=== PATIENT | male | born 1960 | race Caucasian/White ===

== ENCOUNTER 2016-07-13 19:32 | Emergency (ER) | payer MEDICARE, MEDICAID ==
[2016-07-13] MEDS ORDERED: CLINDAMYCIN 150 MG CAP As Ordered ONE (21:10)
--- NOTE | 2016-07-13 21:19 | EDDOCDS ---
Nurse's Notes [facility] Name: Jose Russell Age: 56 yrs Sex: Male : 1960 Arrival Date: 07/13/2016 Time: 19:32 Bed TR7 Private MD: Duncan Latham Diagnosis: Cellulitis of right finger-middle Presentation: 07/13 19:46 Presenting complaint: Patient states: Right middle finger got smashed when carrying 35 rs3 IBS steel weight on Wednesday. Redness /pain getting wrose. Adult Sepsis Screening: The patient does not have new or worsening altered mentation. Patient's respiratory rate is less than 22. Systolic blood pressure is greater than 100. Patient has a qSOFA score of 0- Negative Sepsis Screen. Suicide/Homicide risk assessment- the patient denies having any suicidal and/or homicidal ideations and does not present with any other emotional, behavioral or mental health complaints. Status: Patient is not a food service specialist or dependent. Transition of care: patient was not received from another setting of care. 19:46 Acuity: KOREY Level 4 rs3 19:46 Method Of Arrival: Walkin/Carried/Asstd rs3 Triage Assessment: 19:51 General: Appears in no apparent distress. Pain: Location: dorsal aspect of distal rs3 phalanx of right middle finger and dorsal aspect of middle phalanx of right middle finger. HIV screening NA for this visit Offered previously. Musculoskeletal: Reports Pain is 8 out of 10 on a pain scale. Historical: - Allergies: no known allergies; - Home Meds: 1. loratadine 10 mg Oral cap 10 mg daily 2. Flomax 0.4 mg Oral cp24 1 cap once daily 3. bupropion HCl 150 mg Oral TbER 1 tab 2 times per day 4. Lisinopril Oral 1 tab once daily - PMHx: Hypertension; BPH; - PSHx: none; - Social history: Smoking status: Patient states former smoker of tobacco. No barriers to communication noted, The patient speaks fluent Persian. - Family history: Not pertinent. - : The pt / caregiver states he / she is not on anticoagulants. Home medication list is obtained from the patient. - Exposure Risk Screening:: None identified. Screenin:16 Screening information is obtained from the patient. Fall risk: No risks identified. jmb Assistance ADL's: requires no assistance with activities of daily living. Abuse/DV Screen: The patient / caregiver reports he/she is: not in a situation that causes fear, pain or injury. Nutritional screening: No deficits noted. Advance Directives: Currently, there is no health care proxy. There is no active DNR order. There is no living will. There is no Power of Coagulator. home support is adequate. Assessment: 21:16 General: Patient instructed on discharge instructions. Patient asked if there were any b questions regarding discharge, patient stated no. Patient signed discharge instructions. Patient discharged in stable condition. . Musculoskeletal: Range of motion intact in all extremities. Vital Signs: 19:35 BP 168 / 79; Pulse 77; Resp 20; Temp 96.8(O); Pulse Ox 97% on R/A; Weight 127.01 kg kb5 (M); Height 6 ft. 1 in. (185.42 cm) (R); Pain 8/10; 21:16 BP 150 / 70; Pulse 80; Resp 20; Temp 97.0(O); Pulse Ox 98% on R/A; Pain 0/10; jmb 19:35 Body Mass Index 36.94 (127.01 kg, 185.42 cm) kb5 Vitals: 19:51 Log In Time: July 13, 2016 at 19:32. rs3 ED Course: 19:33 Patient visited by Lb Garduno PCA. kb5 19:33 Patient moved to Waiting kb5 19:34 Duncan Latham MD is Private Physician. kb5 19:48 Triage Initiated rs3 19:56 Patient moved to Pre RCE rs3 20:29 Patient moved to Triage 1 ar3 20:58 Jordan Barney PA-C is PHCP. cc10 20:58 Kyle Pizano DO is Attending Physician. cc10 20:58 PHCP role handed off by Jordan Barney PA-C mo1 20:58 Jaxson Callejas PA is PHCP. mo1 20:58 PHCP role handed off by Jaxson Callejas PA cc10 20:58 Jordan Barney PA-C is PHCP. cc10 20:58 Patient visited by Jordan Barney PA-C. cc10 20:58 Patient visited by Jordan Barney PA-C. cc10 21:08 Duncan Latham MD is Referral Physician. cc10 21:14 Patient moved to [address] 21:16 The patient / caregiver is instructed regarding the plan of care and ED course. b 21:16 No IV's were initiated during this patient's visit. No procedures done that require jmb assistance. Administered Medications: 21:14 Drug: Clindamycin 300 mg [clindamycin 150 mg capsule (2 caps)] Route: PO; jmb Order Results: There are currently no results for this order. Outcome: 21:08 Discharge ordered by Provider. cc10 21:16 Discharge Assessment: Patient awake, alert and oriented x 3. No cognitive and/or jmb functional deficits noted. Patient verbalized understanding of disposition instructions. Patient awake and alert. obeys commands, Oriented to person, place and time. Patient verbalized understanding of disposition instructions. Patient has no functional deficits. patient administered narcotics - no. The following High Risk Discharge criteria are identified: None. Discharged to home ambulatory, with significant other. Condition: stable Condition: improved. Discharge instructions given to patient, Instructed on discharge instructions, follow up and referral plans. Demonstrated understanding of instructions, Pt was receptive of discharge instructions/ teaching. No special radiology studies were completed. Property sent home with patient. 21:18 Patient left the ED. [facility] Signatures: Lb Garduno, REFLESHER REFLESHER kb5 Laura Khalil,RN RN rs3 Tiffany Mcguire, REFLESHER REFLESHER ar3 Jaxson Callejas PA PA mo1 Becker, Joshua,RN RN Jordan Dubon PA-C PA-C cc10 MTDD
--- NOTE | 2016-07-13 21:19 | EDDOCDS ---
Physician Documentation [facility] Name: Jose Russell Age: 56 yrs Sex: Male : 1960 Arrival Date: 07/13/2016 Time: 19:32 Bed TR7 Private MD: Duncan Latham Disposition: 07/13/16 21:08 Discharged to Home/Self Care. Impression: Cellulitis of right finger - middle. - Condition is Stable. - Discharge Instructions: Cellulitis. - Medication Reconciliation form. - Follow up: Duncan Latham MD; When: 2 - 3 days; Reason: Wound/Symptom Recheck, Recheck today's complaints, Worsening of conditions, Continuance of care. - Problem is an ongoing problem. - Symptoms are unchanged. Historical: - Allergies: no known allergies; - Home Meds: 1. loratadine 10 mg Oral cap 10 mg daily 2. Flomax 0.4 mg Oral cp24 1 cap once daily 3. bupropion HCl 150 mg Oral TbER 1 tab 2 times per day 4. Lisinopril Oral 1 tab once daily - PMHx: Hypertension; BPH; - PSHx: none; - Social history: Smoking status: Patient states former smoker of tobacco. No barriers to communication noted, The patient speaks fluent Welsh. - Family history: Not pertinent. - : The pt / caregiver states he / she is not on anticoagulants. Home medication list is obtained from the patient. - Exposure Risk Screening:: None identified. Vital Signs: 07/13 19:35 BP 168 / 79; Pulse 77; Resp 20; Temp 96.8(O); Pulse Ox 97% on R/A; Weight 127.01 kg / kb5 280.01 lbs (M); Height 6 ft. 1 in. (185.42 cm) (R); Pain 8/10; 21:16 BP 150 / 70; Pulse 80; Resp 20; Temp 97.0(O); Pulse Ox 98% on R/A; Pain 0/10; jmb 19:35 Body Mass Index 36.94 (127.01 kg, 185.42 cm) kb5 MDM: 21:08 Clindamycin 300 mg PO once ordered. cc10 21:16 Financial registration complete. gjb Administered Medications: 21:14 Drug: Clindamycin 300 mg [clindamycin 150 mg capsule (2 caps)] Route: PO; florb Signatures: Laura Khalil RN RN rs3 Rinku Bain RN RN jmb Jordan Barney PA-C PA-C cc10 Lisa Maciel MTDD
--- NOTE | 2016-07-15 22:19 | EDDOCDS ---
Nurse's Notes [facility] Name: Jose Russell Age: 56 yrs Sex: Male : 1960 Arrival Date: 07/13/2016 Time: 19:32 Bed TR7 Private MD: Duncan Latham Diagnosis: Cellulitis of right finger-middle Presentation: 07/13 19:46 Presenting complaint: Patient states: Right middle finger got smashed when carrying 35 rs3 IBS steel weight on Wednesday. Redness /pain getting wrose. Adult Sepsis Screening: The patient does not have new or worsening altered mentation. Patient's respiratory rate is less than 22. Systolic blood pressure is greater than 100. Patient has a qSOFA score of 0- Negative Sepsis Screen. Suicide/Homicide risk assessment- the patient denies having any suicidal and/or homicidal ideations and does not present with any other emotional, behavioral or mental health complaints. Status: Patient is not a hvac field service technician or dependent. Transition of care: patient was not received from another setting of care. 19:46 Acuity: KOREY Level 4 rs3 19:46 Method Of Arrival: Walkin/Carried/Asstd rs3 Triage Assessment: 19:51 General: Appears in no apparent distress. Pain: Location: dorsal aspect of distal rs3 phalanx of right middle finger and dorsal aspect of middle phalanx of right middle finger. HIV screening NA for this visit Offered previously. Musculoskeletal: Reports Pain is 8 out of 10 on a pain scale. Historical: - Allergies: no known allergies; - Home Meds: 1. loratadine 10 mg Oral cap 10 mg daily 2. Flomax 0.4 mg Oral cp24 1 cap once daily 3. bupropion HCl 150 mg Oral TbER 1 tab 2 times per day 4. Lisinopril Oral 1 tab once daily - PMHx: Hypertension; BPH; - PSHx: none; - Social history: Smoking status: Patient states former smoker of tobacco. No barriers to communication noted, The patient speaks fluent Greenlandic. - Family history: Not pertinent. - : The pt / caregiver states he / she is not on anticoagulants. Home medication list is obtained from the patient. - Exposure Risk Screening:: None identified. Screenin:16 Screening information is obtained from the patient. Fall risk: No risks identified. jmb Assistance ADL's: requires no assistance with activities of daily living. Abuse/DV Screen: The patient / caregiver reports he/she is: not in a situation that causes fear, pain or injury. Nutritional screening: No deficits noted. Advance Directives: Currently, there is no health care proxy. There is no active DNR order. There is no living will. There is no Power of Landscape Gardener. home support is adequate. Assessment: 21:16 General: Patient instructed on discharge instructions. Patient asked if there were any b questions regarding discharge, patient stated no. Patient signed discharge instructions. Patient discharged in stable condition. . Musculoskeletal: Range of motion intact in all extremities. Vital Signs: 19:35 BP 168 / 79; Pulse 77; Resp 20; Temp 96.8(O); Pulse Ox 97% on R/A; Weight 127.01 kg kb5 (M); Height 6 ft. 1 in. (185.42 cm) (R); Pain 8/10; 21:16 BP 150 / 70; Pulse 80; Resp 20; Temp 97.0(O); Pulse Ox 98% on R/A; Pain 0/10; jmb 19:35 Body Mass Index 36.94 (127.01 kg, 185.42 cm) kb5 Vitals: 19:51 Log In Time: July 13, 2016 at 19:32. rs3 ED Course: 19:33 Patient visited by Lb Garduno PCA. kb5 19:33 Patient moved to Waiting kb5 19:34 Duncan Latham MD is Private Physician. kb5 19:48 Triage Initiated rs3 19:56 Patient moved to Pre RCE rs3 20:29 Patient moved to Triage 1 ar3 20:58 Jordan Barney PA-C is PHCP. cc10 20:58 Kyle Pizano DO is Attending Physician. cc10 20:58 PHCP role handed off by Jordan Barney PA-C mo1 20:58 Jaxson Callejas PA is PHCP. mo1 20:58 PHCP role handed off by Jaxson Callejas PA cc10 20:58 Jordan Barney PA-C is PHCP. cc10 20:58 Patient visited by Jordan Barney PA-C. cc10 20:58 Patient visited by Jordan Barney PA-C. cc10 21:08 Duncan Latham MD is Referral Physician. cc10 21:14 Patient moved to TR7 b 21:16 The patient / caregiver is instructed regarding the plan of care and ED course. jmb 21:16 No IV's were initiated during this patient's visit. No procedures done that require jmb assistance. 21:21 Patient name changed from Jose\S\\S\Favry\S\ to Jose\S\ \S\Favry. EDMS 21:23 [facility] Payment Agreement was scanned into [employer] and attached to record. gjb 07/14 10:03 T-Sheet-- Draft Copy was scanned into [employer] and attached to record. gb Administered Medications: 07/13 21:14 Drug: Clindamycin 300 mg [clindamycin 150 mg capsule (2 caps)] Route: PO; jmb Order Results: There are currently no results for this order. Outcome: 21:08 Discharge ordered by Provider. cc10 21:16 Discharge Assessment: Patient awake, alert and oriented x 3. No cognitive and/or jmb functional deficits noted. Patient verbalized understanding of disposition instructions. Patient awake and alert. obeys commands, Oriented to person, place and time. Patient verbalized understanding of disposition instructions. Patient has no functional deficits. patient administered narcotics - no. The following High Risk Discharge criteria are identified: None. Discharged to home ambulatory, with significant other. Condition: stable Condition: improved. Discharge instructions given to patient, Instructed on discharge instructions, follow up and referral plans. Demonstrated understanding of instructions, Pt was receptive of discharge instructions/ teaching. No special radiology studies were completed. Property sent home with patient. 21:18 Patient left the ED. jmb Signatures: Dispatcher [employer] EDAL Karmen Johnson, Reg Reg gb Lb Garduno, HYDROGEN PLANT OPERATIONS MANAGER HYDROGEN PLANT OPERATIONS MANAGER kb5 Laura Khalil,CHENCHO RN rs3 Tiffany Mcguire, HYDROGEN PLANT OPERATIONS MANAGER HYDROGEN PLANT OPERATIONS MANAGER ar3 Jaxson Callejas PA PA mo1 Becker, Joshua, RN RN jmb Coniski, Colin, PA-C PA-C cc10 Lisa Maciel [facility] Chart Complete MTDD
--- NOTE | 2016-07-15 22:19 | EDDOCDS ---
Physician Documentation [facility] Name: Jose Russell Age: 56 yrs Sex: Male : 1960 Arrival Date: 07/13/2016 Time: 19:32 Bed TR7 Private MD: Duncan Latham Disposition: 07/13/16 21:08 Discharged to Home/Self Care. Impression: Cellulitis of right finger - middle. - Condition is Stable. - Discharge Instructions: Cellulitis. - Medication Reconciliation form. - Follow up: Duncan Latham MD; When: 2 - 3 days; Reason: Wound/Symptom Recheck, Recheck today's complaints, Worsening of conditions, Continuance of care. - Problem is an ongoing problem. - Symptoms are unchanged. Historical: - Allergies: no known allergies; - Home Meds: 1. loratadine 10 mg Oral cap 10 mg daily 2. Flomax 0.4 mg Oral cp24 1 cap once daily 3. bupropion HCl 150 mg Oral TbER 1 tab 2 times per day 4. Lisinopril Oral 1 tab once daily - PMHx: Hypertension; BPH; - PSHx: none; - Social history: Smoking status: Patient states former smoker of tobacco. No barriers to communication noted, The patient speaks fluent Albanian. - Family history: Not pertinent. - : The pt / caregiver states he / she is not on anticoagulants. Home medication list is obtained from the patient. - Exposure Risk Screening:: None identified. Vital Signs: 07/13 19:35 BP 168 / 79; Pulse 77; Resp 20; Temp 96.8(O); Pulse Ox 97% on R/A; Weight 127.01 kg / kb5 280.01 lbs (M); Height 6 ft. 1 in. (185.42 cm) (R); Pain 8/10; 21:16 BP 150 / 70; Pulse 80; Resp 20; Temp 97.0(O); Pulse Ox 98% on R/A; Pain 0/10; jmb 19:35 Body Mass Index 36.94 (127.01 kg, 185.42 cm) kb5 MDM: 21:08 Clindamycin 300 mg PO once ordered. cc10 21:16 Financial registration complete. jerilyn 21:23 [facility] Payment Agreement was scanned into [employer] and attached to record. jerilyn 07/14 10:03 T-Sheet-- Draft Copy was scanned into [employer] and attached to record. gb Administered Medications: 07/13 21:14 Drug: Clindamycin 300 mg [clindamycin 150 mg capsule (2 caps)] Route: PO; jesi Signatures: Karmen Johnson, Reg Reg gb Laura Khalil RN RN rs3 Rinku Bain RN RN florb Jordan Barney, PA-C PA-C cc10 Lisa Maciel The chart was reviewed and I authenticate all verbal orders and agree with the evaluation and treatment provided.Attachments: 21:23 [facility] Payment Agreement [facility] 07/14 10:03 T-Sheet-- Draft Copy gb Chart Complete MTDD
--- NOTE | 2016-07-15 22:19 | EDDOCDS ---
Physician Documentation [facility] Name: Jose Russell Age: 56 yrs Sex: Male : 1960 Arrival Date: 07/13/2016 Time: 19:32 Bed TR7 Private MD: Duncan Latham Disposition: 07/13/16 21:08 Discharged to Home/Self Care. Impression: Cellulitis of right finger - middle. - Condition is Stable. - Discharge Instructions: Cellulitis. - Medication Reconciliation form. - Follow up: Duncan Latham MD; When: 2 - 3 days; Reason: Wound/Symptom Recheck, Recheck today's complaints, Worsening of conditions, Continuance of care. - Problem is an ongoing problem. - Symptoms are unchanged. Historical: - Allergies: no known allergies; - Home Meds: 1. loratadine 10 mg Oral cap 10 mg daily 2. Flomax 0.4 mg Oral cp24 1 cap once daily 3. bupropion HCl 150 mg Oral TbER 1 tab 2 times per day 4. Lisinopril Oral 1 tab once daily - PMHx: Hypertension; BPH; - PSHx: none; - Social history: Smoking status: Patient states former smoker of tobacco. No barriers to communication noted, The patient speaks fluent Georgian. - Family history: Not pertinent. - : The pt / caregiver states he / she is not on anticoagulants. Home medication list is obtained from the patient. - Exposure Risk Screening:: None identified. Vital Signs: 07/13 19:35 BP 168 / 79; Pulse 77; Resp 20; Temp 96.8(O); Pulse Ox 97% on R/A; Weight 127.01 kg / kb5 280.01 lbs (M); Height 6 ft. 1 in. (185.42 cm) (R); Pain 8/10; 21:16 BP 150 / 70; Pulse 80; Resp 20; Temp 97.0(O); Pulse Ox 98% on R/A; Pain 0/10; jmb 19:35 Body Mass Index 36.94 (127.01 kg, 185.42 cm) kb5 MDM: 21:08 Clindamycin 300 mg PO once ordered. cc10 21:16 Financial registration complete. jerilyn 21:23 [facility] Payment Agreement was scanned into [employer] and attached to record. jerilyn 07/14 10:03 T-Sheet-- Draft Copy was scanned into [employer] and attached to record. gb Administered Medications: 07/13 21:14 Drug: Clindamycin 300 mg [clindamycin 150 mg capsule (2 caps)] Route: PO; jesi Signatures: Karmen Johnson, Reg Reg gb Laura Khalil RN RN rs3 Rinku Bain RN RN florb Jordan Barney, PA-C PA-C cc10 Lisa Maciel The chart was reviewed and I authenticate all verbal orders and agree with the evaluation and treatment provided.Attachments: 21:23 [facility] Payment Agreement [facility] 07/14 10:03 T-Sheet-- Draft Copy gb Chart Complete MTDD
== END 2016-07-13 21:18 | disposition home or self-care (01) ==
LOC: M ED 19:32
DX: L03.113 Cellulitis of right upper limb (principal); I10 Essential (primary) hypertension; N40.0 Benign prostatic hyperplasia without lower urinary tract symptoms; Z79.899 Other long term (current) drug therapy; Z87.891 Personal history of nicotine dependence

== ENCOUNTER 2016-07-18 21:34 | Emergency (ER) | payer MEDICARE, MEDICAID ==
[2016-07-18] MEDS ORDERED: CLINDAMYCIN 150 MG CAP As Ordered ONE (22:21)
[2016-07-18] MEDS ORDERED: LIDOCAINE 2% MDV 20 ML VIAL As Ordered ONE (22:22)
[2016-07-18] MEDS ORDERED: NORCO, ANEXSIA 5/325MG TABLET (HYDROcodone/ACETAMINOPHEN) As Ordered ONE (22:45)
--- NOTE | 2016-07-18 23:03 | EDDOCDS ---
Nurse's Notes [facility] Name: Jose Russell Age: 56 yrs Sex: Male : 1960 Arrival Date: 07/18/2016 Time: 21:34 Bed Triage 2 Private MD: Duncan Latham Diagnosis: Cutaneous abscess of right hand-paronychia right third finger Presentation: 07/18 21:44 Presenting complaint: Patient states: Was seen here Wednesday--stuck finger with wire. Has mcp been on antibiotics and finger is getting worse. Adult Sepsis Screening: The patient does not have new or worsening altered mentation. Patient's respiratory rate is less than 22. Systolic blood pressure is greater than 100. Patient has a qSOFA score of 0- Negative Sepsis Screen. Suicide/Homicide risk assessment- the patient denies having any suicidal and/or homicidal ideations and does not present with any other emotional, behavioral or mental health complaints. Status: Patient is not a tax services specialist or dependent. Transition of care: patient was not received from another setting of care. 21:44 Acuity: KOREY Level 4 [facility] 21:44 Method Of Arrival: Walkin/Carried/Asstd [facility] Triage Assessment: 21:46 General: Appears uncomfortable, Behavior is cooperative. Pain: Location: dorsal aspect mcp of distal phalanx of right middle finger. HIV screening NA for this visit Offered previously. Neurological: No deficits noted. Respiratory: No deficits noted. Derm: Skin is pink, warm & dry. Abscess located on dorsal aspect of distal phalanx of right middle finger. Musculoskeletal: Circulation, motion, and sensation intact Swelling present in dorsal aspect of distal phalanx of right middle finger. Historical: - Allergies: no known allergies; - Home Meds: 1. bupropion HCl 150 mg Oral TbER 1 tab 2 times per day 2. Flomax 0.4 mg Oral cp24 1 cap once daily 3. Lisinopril Oral 1 tab once daily 4. loratadine 10 mg Oral cap 10 mg daily 5. doxycycline hyclate 100 mg Oral cap 1 cap every 12 hours - PMHx: BPH; Hypertension; - PSHx: none; - Social history: Smoking status: Patient states was never smoker of tobacco. No barriers to communication noted, The patient speaks fluent Beninese. - Family history: Not pertinent. - : The pt / caregiver states he / she is not on anticoagulants. Home medication list is obtained from the patient, family members. - Exposure Risk Screening:: None identified. Screenin:56 Screening information is obtained from the patient. Fall risk: No risks identified. kmg1 Assistance ADL's: requires no assistance with activities of daily living. Abuse/DV Screen: The patient / caregiver reports he/she is: not in a situation that causes fear, pain or injury. Nutritional screening: No deficits noted. Advance Directives: There is no active DNR order. home support is adequate. Assessment: 22:25 General: Appears in no apparent distress, comfortable, Behavior is appropriate for age. kmg1 Pain: Location: dorsal aspect of distal phalanx of right middle finger, palmar aspect of distal phalanx of right middle finger and right middle fingernail Pain currently is 5 out of 10 on a pain scale. Quality of pain is described as pressure, throbbing. Derm: Abscess located on dorsal aspect of distal phalanx of right middle finger, palmar aspect of distal phalanx of right middle finger and right middle fingernail is Abscess is Right middle fingertip swollen and puss filled. Musculoskeletal: Circulation, motion, and sensation intact Capillary refill < 3 seconds. Vital Signs: 21:36 BP 149 / 72; Pulse 69; Resp 16; Temp 96.1(T); Pulse Ox 98% on R/A; Weight 125.19 kg lr2 (R); Height 6 ft. 1 in. (185.42 cm) (R); Pain 5/10; 21:36 Body Mass Index 36.41 (125.19 kg, 185.42 cm) lr2 Vitals: 21:36 Log In Time: July 18, 2016 at 21:34. lr2 ED Course: 21:36 Patient visited by Tia Brown. lr2 21:36 Patient moved to Waiting lr2 21:38 Duncan Latham MD is Private Physician. lr2 21:38 Patient moved to Pre RCE lr2 21:45 Triage Initiated mcp 21:47 Patient visited by Dianna Cruz RN. [facility] 21:47 Patient moved to Triage 2 mcp 22:17 [facility] Callejas [facility] mo1 22:17 Gen Shaikh DO is Attending Physician. mo1 22:19 Patient visited by Jaxson Callejas PA. mo1 22:27 No IV's were initiated during this patient's visit. Assist provider with I & D: of an ms18 abscess on R middle finger. 22:40 Duncan Latham MD is Referral Physician. mo1 22:44 [facility] Payment Agreement was scanned into [employer] and attached to record. ks16 22:47 Patient name changed from Jose\S\\S\Favry\S\ to Jose\S\ \S\Favry. EDMS 22:56 The patient / caregiver is instructed regarding the plan of care and ED course. kmg1 22:56 No IV's were initiated during this patient's visit. kmg1 Administered Medications: 22:23 Drug: Clindamycin 300 mg [clindamycin 150 mg capsule (2 caps)] Route: PO; mo1 22:26 Drug: Lidocaine 10 ml [lidocaine 20 mg/mL (2 %) injection solution (10 mL)] {Note: by mo1 Trupti SOLOMON.} Route: Infiltration; Order Results: There are currently no results for this order. Outcome: 22:40 Discharge ordered by Provider. mo1 22:56 Discharge Assessment: Patient awake, alert and oriented x 3. No cognitive and/or kmg1 functional deficits noted. Patient verbalized understanding of disposition instructions. Patient awake and alert. patient administered narcotics - yes. Pt provided with safe discharge. The following High Risk Discharge criteria are identified: None. Discharged to home ambulatory, with significant other. Condition: stable. Discharge instructions given to patient, Instructed on discharge instructions, follow up and referral plans. medication usage, wound care, Demonstrated understanding of instructions, medications, Pt was receptive of discharge instructions/ teaching. Prescriptions given X 2. No special radiology studies were completed. Property sent home with patient. 23:02 Patient left the ED. [facility] Signatures: [facility] ED[facility] Aretha Nuñez RN RN kmg1 Dianna Cruz RN RN mcp O'Hagan, Michael, PA PA mo1 Mishel Benavides RN RN ms18 Naye Huang, Reg Reg ks16 Tia Brown lr2 MTDD
--- NOTE | 2016-07-18 23:03 | EDDOCDS ---
Physician Documentation [facility] Name: Jose Russell Age: 56 yrs Sex: Male : 1960 Arrival Date: 07/18/2016 Time: 21:34 Bed Triage 2 Private MD: Duncan Latham Disposition: 07/18/16 22:40 Discharged to Home/Self Care. Impression: Cutaneous abscess of right hand - paronychia right third finger. - Condition is Stable. - Discharge Instructions: Abscess, Paronychia. - Prescriptions for Clindamycin HCl 300 mg Oral Capsule - take 1 capsule by ORAL route every 6 hours; 40 capsule. Silvis 5- 325 mg Oral Tablet - take 1 tablet by ORAL route every 6 hours As needed MDD: 4 tabs; 12 tablet. - Medication Reconciliation, Local Pharmacy Hours form. - Follow up: Duncan Latham MD; When: Call to arrange an appointment; Reason: Recheck today's complaints, Continuance of care. - Problem is new. - Symptoms are unchanged. Historical: - Allergies: no known allergies; - Home Meds: 1. bupropion HCl 150 mg Oral TbER 1 tab 2 times per day 2. Flomax 0.4 mg Oral cp24 1 cap once daily 3. Lisinopril Oral 1 tab once daily 4. loratadine 10 mg Oral cap 10 mg daily 5. doxycycline hyclate 100 mg Oral cap 1 cap every 12 hours - PMHx: BPH; Hypertension; - PSHx: none; - Social history: Smoking status: Patient states was never smoker of tobacco. No barriers to communication noted, The patient speaks fluent Urdu. - Family history: Not pertinent. - : The pt / caregiver states he / she is not on anticoagulants. Home medication list is obtained from the patient, family members. - Exposure Risk Screening:: None identified. Vital Signs: 07/18 21:36 BP 149 / 72; Pulse 69; Resp 16; Temp 96.1(T); Pulse Ox 98% on R/A; Weight 125.19 kg / lr2 276 lbs (R); Height 6 ft. 1 in. (185.42 cm) (R); Pain 5/10; 21:36 Body Mass Index 36.41 (125.19 kg, 185.42 cm) lr2 Procedures: 22:33 I & D: Incision and drainage was performed for an abscess of the dorsal aspect of mo1 distal phalanx of right middle finger Prepped with hibiclens. Anesthetized with 2 ml's 2% Lidocaine. Incised with #11 blade. Drained large amount purulent fluid. bloody fluid. Packed with the patient tolerated the procedure well. MDM: 22:21 Clindamycin 300 mg PO once ordered. mo1 22:21 Dressing ordered. mo1 22:21 Lidocaine 20 mg/mL (2 %) 10 ml Infiltration once; to bedside ordered. mo1 22:38 Financial registration complete. ks16 22:41 HYDROcodone-acetaminophen 5 mg-325 mg 1 tabs PO once ordered. mo1 22:44 [facility] Payment Agreement was scanned into [employer] and attached to record. ks16 Administered Medications: 22:23 Drug: Clindamycin 300 mg [clindamycin 150 mg capsule (2 caps)] Route: PO; mo1 22:26 Drug: Lidocaine 10 ml [lidocaine 20 mg/mL (2 %) injection solution (10 mL)] {Note: by mo1 Trupti SOLOMON.} Route: Infiltration; Signatures: Aretha Nuñez RN RN km Dianna Cruz RN RN mcp O'Hagan, Michael, PA PA mo1 Naye Huang, Reg Reg ks16 The chart was reviewed and I authenticate all verbal orders and agree with the evaluation and treatment provided.Attachments: 22:44 [facility] Payment Agreement ks16 MTDD
--- NOTE | 2016-07-21 00:03 | EDDOCDS ---
Nurse's Notes [facility] Name: Jose Russell Age: 56 yrs Sex: Male : 1960 Arrival Date: 07/18/2016 Time: 21:34 Bed Triage 2 Private MD: Duncan Latham Diagnosis: Cutaneous abscess of right hand-paronychia right third finger Presentation: 07/18 21:44 Presenting complaint: Patient states: Was seen here Wednesday--stuck finger with wire. Has mcp been on antibiotics and finger is getting worse. Adult Sepsis Screening: The patient does not have new or worsening altered mentation. Patient's respiratory rate is less than 22. Systolic blood pressure is greater than 100. Patient has a qSOFA score of 0- Negative Sepsis Screen. Suicide/Homicide risk assessment- the patient denies having any suicidal and/or homicidal ideations and does not present with any other emotional, behavioral or mental health complaints. Status: Patient is not a financial services director or dependent. Transition of care: patient was not received from another setting of care. 21:44 Acuity: KOREY Level 4 [facility] 21:44 Method Of Arrival: Walkin/Carried/Asstd [facility] Triage Assessment: 21:46 General: Appears uncomfortable, Behavior is cooperative. Pain: Location: dorsal aspect mcp of distal phalanx of right middle finger. HIV screening NA for this visit Offered previously. Neurological: No deficits noted. Respiratory: No deficits noted. Derm: Skin is pink, warm & dry. Abscess located on dorsal aspect of distal phalanx of right middle finger. Musculoskeletal: Circulation, motion, and sensation intact Swelling present in dorsal aspect of distal phalanx of right middle finger. Historical: - Allergies: no known allergies; - Home Meds: 1. bupropion HCl 150 mg Oral TbER 1 tab 2 times per day 2. Flomax 0.4 mg Oral cp24 1 cap once daily 3. Lisinopril Oral 1 tab once daily 4. loratadine 10 mg Oral cap 10 mg daily 5. doxycycline hyclate 100 mg Oral cap 1 cap every 12 hours - PMHx: BPH; Hypertension; - PSHx: none; - Social history: Smoking status: Patient states was never smoker of tobacco. No barriers to communication noted, The patient speaks fluent Beninese. - Family history: Not pertinent. - : The pt / caregiver states he / she is not on anticoagulants. Home medication list is obtained from the patient, family members. - Exposure Risk Screening:: None identified. Screenin:56 Screening information is obtained from the patient. Fall risk: No risks identified. kmg1 Assistance ADL's: requires no assistance with activities of daily living. Abuse/DV Screen: The patient / caregiver reports he/she is: not in a situation that causes fear, pain or injury. Nutritional screening: No deficits noted. Advance Directives: There is no active DNR order. home support is adequate. Assessment: 22:25 General: Appears in no apparent distress, comfortable, Behavior is appropriate for age. kmg1 Pain: Location: dorsal aspect of distal phalanx of right middle finger, palmar aspect of distal phalanx of right middle finger and right middle fingernail Pain currently is 5 out of 10 on a pain scale. Quality of pain is described as pressure, throbbing. Derm: Abscess located on dorsal aspect of distal phalanx of right middle finger, palmar aspect of distal phalanx of right middle finger and right middle fingernail is Abscess is Right middle fingertip swollen and puss filled. Musculoskeletal: Circulation, motion, and sensation intact Capillary refill < 3 seconds. Vital Signs: 21:36 BP 149 / 72; Pulse 69; Resp 16; Temp 96.1(T); Pulse Ox 98% on R/A; Weight 125.19 kg lr2 (R); Height 6 ft. 1 in. (185.42 cm) (R); Pain 5/10; 21:36 Body Mass Index 36.41 (125.19 kg, 185.42 cm) lr2 Vitals: 21:36 Log In Time: July 18, 2016 at 21:34. lr2 ED Course: 21:36 Patient visited by Tia Brown. lr2 21:36 Patient moved to Waiting lr2 21:38 Duncan Latham MD is Private Physician. lr2 21:38 Patient moved to Pre RCE lr2 21:45 Triage Initiated mcp 21:47 Patient visited by Dianna Cruz RN. [facility] 21:47 Patient moved to Triage 2 mcp 22:17 Jax[facility]lejas [facility]. mo1 22:17 Gen Shaikh DO is Attending Physician. mo1 22:19 Patient visited by Jaxson Callejas PA. mo1 22:27 No IV's were initiated during this patient's visit. Assist provider with I & D: of an ms18 abscess on R middle finger. 22:40 Duncan Latham MD is Referral Physician. mo1 22:44 [facility] Payment Agreement was scanned into [employer] and attached to record. ks16 22:47 Patient name changed from Jose\S\\S\Favry\S\ to Jose\S\ \S\Favry. EDMS 22:56 The patient / caregiver is instructed regarding the plan of care and ED course. kmg1 22:56 No IV's were initiated during this patient's visit. [facility] 07/19 08:25 T-Sheet-- Draft Copy was scanned into [employer] and attached to record. [facility] Administered Medications: 07/18 22:23 Drug: Clindamycin 300 mg [clindamycin 150 mg capsule (2 caps)] Route: PO; mo1 22:26 Drug: Lidocaine 10 ml [lidocaine 20 mg/mL (2 %) injection solution (10 mL)] {Note: by mo1 Trupti SOLOMON.} Route: Infiltration; Order Results: There are currently no results for this order. Outcome: 22:40 Discharge ordered by Provider. mo1 22:56 Discharge Assessment: Patient awake, alert and oriented x 3. No cognitive and/or [facility] functional deficits noted. Patient verbalized understanding of disposition instructions. Patient awake and alert. patient administered narcotics - yes. Pt provided with safe discharge. The following High Risk Discharge criteria are identified: None. Discharged to home ambulatory, with significant other. Condition: stable. Discharge instructions given to patient, Instructed on discharge instructions, follow up and referral plans. medication usage, wound care, Demonstrated understanding of instructions, medications, Pt was receptive of discharge instructions/ teaching. Prescriptions given X 2. No special radiology studies were completed. Property sent home with patient. 23:02 Patient left the ED. [facility] Signatures: [facility] Aretha Nuñez RN RN g1 Dianna Cruz RN RN mcp O'Hagan, Michael, PA PA mo1 Mishel Benavides RN RN ms18 Naye Huang, Reg Reg ks16 Rosangela, Tia Lane Chart Complete MTDD
--- NOTE | 2016-07-21 00:03 | EDDOCDS ---
Physician Documentation [facility] Name: Jose Russell Age: 56 yrs Sex: Male : 1960 Arrival Date: 07/18/2016 Time: 21:34 Bed Triage 2 Private MD: Duncan Latham Disposition: 07/18/16 22:40 Discharged to Home/Self Care. Impression: Cutaneous abscess of right hand - paronychia right third finger. - Condition is Stable. - Discharge Instructions: Abscess, Paronychia. - Prescriptions for Clindamycin HCl 300 mg Oral Capsule - take 1 capsule by ORAL route every 6 hours; 40 capsule. Dixon 5- 325 mg Oral Tablet - take 1 tablet by ORAL route every 6 hours As needed MDD: 4 tabs; 12 tablet. - Medication Reconciliation, Local Pharmacy Hours form. - Follow up: Duncan Latham MD; When: Call to arrange an appointment; Reason: Recheck today's complaints, Continuance of care. - Problem is new. - Symptoms are unchanged. Historical: - Allergies: no known allergies; - Home Meds: 1. bupropion HCl 150 mg Oral TbER 1 tab 2 times per day 2. Flomax 0.4 mg Oral cp24 1 cap once daily 3. Lisinopril Oral 1 tab once daily 4. loratadine 10 mg Oral cap 10 mg daily 5. doxycycline hyclate 100 mg Oral cap 1 cap every 12 hours - PMHx: BPH; Hypertension; - PSHx: none; - Social history: Smoking status: Patient states was never smoker of tobacco. No barriers to communication noted, The patient speaks fluent Kazakh. - Family history: Not pertinent. - : The pt / caregiver states he / she is not on anticoagulants. Home medication list is obtained from the patient, family members. - Exposure Risk Screening:: None identified. Vital Signs: 07/18 21:36 BP 149 / 72; Pulse 69; Resp 16; Temp 96.1(T); Pulse Ox 98% on R/A; Weight 125.19 kg / lr2 276 lbs (R); Height 6 ft. 1 in. (185.42 cm) (R); Pain 5/10; 21:36 Body Mass Index 36.41 (125.19 kg, 185.42 cm) lr2 Procedures: 22:33 I & D: Incision and drainage was performed for an abscess of the dorsal aspect of mo1 distal phalanx of right middle finger Prepped with hibiclens. Anesthetized with 2 ml's 2% Lidocaine. Incised with #11 blade. Drained large amount purulent fluid. bloody fluid. Packed with the patient tolerated the procedure well. MDM: 22:21 Clindamycin 300 mg PO once ordered. mo1 22:21 Dressing ordered. mo1 22:21 Lidocaine 20 mg/mL (2 %) 10 ml Infiltration once; to bedside ordered. mo1 22:38 Financial registration complete. ks16 22:41 HYDROcodone-acetaminophen 5 mg-325 mg 1 tabs PO once ordered. mo1 22:44 [facility] Payment Agreement was scanned into [employer] and attached to record. 07/19 08:25 T-Sheet-- Draft Copy was scanned into [employer] and attached to record. se Administered Medications: 07/18 22:23 Drug: Clindamycin 300 mg [clindamycin 150 mg capsule (2 caps)] Route: PO; mo1 22:26 Drug: Lidocaine 10 ml [lidocaine 20 mg/mL (2 %) injection solution (10 mL)] {Note: by mo1 Trupti SOLOMON.} Route: Infiltration; Signatures: Aretha Nuñez RN RN km Dianna Cruz RN RN [facility] Jaxson Callejas PA PA mo1 Naye Huang, Reg Reg ks16 Alicia Adames oliver The chart was reviewed and I authenticate all verbal orders and agree with the evaluation and treatment provided.Attachments: :44 [facility] Payment Agreement 07/19 08:25 T-Sheet-- Draft Copy [facility] Chart Complete MTDD
--- NOTE | 2016-07-21 00:03 | EDDOCDS ---
Physician Documentation [facility] Name: Jose Russell Age: 56 yrs Sex: Male : 1960 Arrival Date: 07/18/2016 Time: 21:34 Bed Triage 2 Private MD: Duncan Latham Disposition: 07/18/16 22:40 Discharged to Home/Self Care. Impression: Cutaneous abscess of right hand - paronychia right third finger. - Condition is Stable. - Discharge Instructions: Abscess, Paronychia. - Prescriptions for Clindamycin HCl 300 mg Oral Capsule - take 1 capsule by ORAL route every 6 hours; 40 capsule. Sabin 5- 325 mg Oral Tablet - take 1 tablet by ORAL route every 6 hours As needed MDD: 4 tabs; 12 tablet. - Medication Reconciliation, Local Pharmacy Hours form. - Follow up: Duncan Latham MD; When: Call to arrange an appointment; Reason: Recheck today's complaints, Continuance of care. - Problem is new. - Symptoms are unchanged. Historical: - Allergies: no known allergies; - Home Meds: 1. bupropion HCl 150 mg Oral TbER 1 tab 2 times per day 2. Flomax 0.4 mg Oral cp24 1 cap once daily 3. Lisinopril Oral 1 tab once daily 4. loratadine 10 mg Oral cap 10 mg daily 5. doxycycline hyclate 100 mg Oral cap 1 cap every 12 hours - PMHx: BPH; Hypertension; - PSHx: none; - Social history: Smoking status: Patient states was never smoker of tobacco. No barriers to communication noted, The patient speaks fluent Turkmen. - Family history: Not pertinent. - : The pt / caregiver states he / she is not on anticoagulants. Home medication list is obtained from the patient, family members. - Exposure Risk Screening:: None identified. Vital Signs: 07/18 21:36 BP 149 / 72; Pulse 69; Resp 16; Temp 96.1(T); Pulse Ox 98% on R/A; Weight 125.19 kg / lr2 276 lbs (R); Height 6 ft. 1 in. (185.42 cm) (R); Pain 5/10; 21:36 Body Mass Index 36.41 (125.19 kg, 185.42 cm) lr2 Procedures: 22:33 I & D: Incision and drainage was performed for an abscess of the dorsal aspect of mo1 distal phalanx of right middle finger Prepped with hibiclens. Anesthetized with 2 ml's 2% Lidocaine. Incised with #11 blade. Drained large amount purulent fluid. bloody fluid. Packed with the patient tolerated the procedure well. MDM: 22:21 Clindamycin 300 mg PO once ordered. mo1 22:21 Dressing ordered. mo1 22:21 Lidocaine 20 mg/mL (2 %) 10 ml Infiltration once; to bedside ordered. mo1 22:38 Financial registration complete. ks16 22:41 HYDROcodone-acetaminophen 5 mg-325 mg 1 tabs PO once ordered. mo1 22:44 [facility] Payment Agreement was scanned into [employer] and attached to record. 07/19 08:25 T-Sheet-- Draft Copy was scanned into [employer] and attached to record. se Administered Medications: 07/18 22:23 Drug: Clindamycin 300 mg [clindamycin 150 mg capsule (2 caps)] Route: PO; mo1 22:26 Drug: Lidocaine 10 ml [lidocaine 20 mg/mL (2 %) injection solution (10 mL)] {Note: by mo1 Trupti SOLOMON.} Route: Infiltration; Signatures: Aretha Nuñez RN RN km Dianna Cruz RN RN [facility] Jaxson Callejas PA PA mo1 Naye Huang, Reg Reg ks16 Alicia Adames oliver The chart was reviewed and I authenticate all verbal orders and agree with the evaluation and treatment provided.Attachments: :44 [facility] Payment Agreement 07/19 08:25 T-Sheet-- Draft Copy [facility] Chart Complete MTDD
== END 2016-07-18 23:02 | disposition home or self-care (01) ==
LOC: M ED 21:34
DX: L02.511 Cutaneous abscess of right hand (principal); L03.011 Cellulitis of right finger; I10 Essential (primary) hypertension; N40.0 Benign prostatic hyperplasia without lower urinary tract symptoms; Z79.899 Other long term (current) drug therapy

== ENCOUNTER 2016-07-26 11:05 | Emergency (ER) | payer MEDICARE, MEDICAID ==
[~2016-07-26] VITALS: Ht 185.4 cm; Wt 122.5 kg
[2016-07-26 11:06] VITALS: BP 159/100
[2016-07-26] MEDS ORDERED: FLOM5CAP PO (11:22)
[2016-07-26] MEDS ORDERED: AMOX875T2 PO (11:22)
[2016-07-26] MEDS ORDERED: FLON1SPR (11:22)
[2016-07-26] MEDS ORDERED: MULTCAP12 PO (11:22)
[2016-07-26] MEDS ORDERED: ASPI81TA85 PO (11:22)
[2016-07-26] MEDS ORDERED: CLAR10CA3 PO (11:22)
[2016-07-26] MEDS ORDERED: BUPR1TAB17 PO (11:22)
[2016-07-26] MEDS ORDERED: LISI-542 PO (11:22)
[2016-07-26] MEDS ORDERED: CLINDAMYCIN 900 MG in APPROPRIATE DILUENT 1 EA IV ONE (12:15)
--- NOTE | 2016-07-26 12:24 | REP ---
RIGHT THIRD DIGIT: Four views of the right third digit are performed. There is no evidence of acute fracture, dislocation or osseous destruction. No periosteal reaction is seen. IMPRESSION: Negative exam. Signed by Phi Flores MD 07/26/2016 01:57 P
[2016-07-26 12:40] LABS: BASO # 0.1 K/mm3 (0.0-0.2); BASO % 0.7 % (0.0-1.0); EOS # 0.1 K/mm3 (0.0-0.50); EOS % 1.1 % (0.0-3.0); LARGE UNSTAINED CELL # 0.2 K/mm3 (0.0-0.4); LARGE UNSTAINED CELL % 2.3 % (0.0-4.0); LYMPH # 1.6 K/mm3 (1.5-4.5); LYMPH % 15.2 % (24.0-44.0); MEAN CORPUSCULAR HEMOGLOBIN 26.8 pg (27.0-33.0); MEAN CORPUSCULAR VOLUME 81.3 fl (80.0-96.0); MONO # 0.5 K/mm3 (0.0-0.8); MONO % 5.8 % (0.0-5.0); NEUTROPHILS # 6.8 K/mm3 (1.8-7.7); NEUTROPHILS % 74.9 % (36.0-66.0); PLATELET COUNT, AUTOMATED 259 k/mm3 (150-450); RED CELL DISTRIBUTION WIDTH 16.1 % (11.5-14.5)
[2016-07-26 13:01] LABS: ALBUMIN 4.1 GM/DL (3.2-5.2); ALBUMIN/GLOBULIN RATIO 1.21 (1.00-1.93); ALKALINE PHOSPHATASE 77 U/L (45-117); ALT/SGPT 33 U/L (12-78); ANION GAP 8 MEQ/L (8-16); AST/SGOT 27 U/L (15-37); BILIRUBIN,DIRECT < 0.1 MG/DL (0.0-0.2); BILIRUBIN,TOTAL 0.3 MG/DL (0.2-1.0); BLOOD UREA NITROGEN 15 MG/DL (7-18); CALCIUM LEVEL 8.6 MG/DL (8.5-10.1); CARBON DIOXIDE LEVEL 26 MEQ/L (21-32); CHLORIDE LEVEL 106 MEQ/L (98-107); CREATININE FOR GFR 0.91 MG/DL (0.70-1.30); GLOMERULAR FILTRATION RATE > 60.0 (>56); GLUCOSE, FASTING 109 MG/DL (70-105); POTASSIUM SERUM 4.7 MEQ/L (3.5-5.1); SODIUM LEVEL 140 MEQ/L (136-145); TOTAL PROTEIN 7.5 GM/DL (6.4-8.2)
[2016-07-26 13:10] LABS: ERYTHROCYTE SEDIMENTATION RATE 20 mm/hr (0-20)
== END 2016-07-26 14:25 | disposition home or self-care (01) ==
LOC: M ED 12:08
DX: L03.011 Cellulitis of right finger (principal); I10 Essential (primary) hypertension; J44.9 Chronic obstructive pulmonary disease, unspecified; N40.0 Benign prostatic hyperplasia without lower urinary tract symptoms; I25.2 Old myocardial infarction; Z79.899 Other long term (current) drug therapy; Z79.82 Long term (current) use of aspirin; Z87.891 Personal history of nicotine dependence

== ENCOUNTER → 2016-09-30 | Outpatient (CLI) | payer MEDICARE, MEDICAID ==
[~2016-09-30] VITALS: Ht 185.4 cm; Wt 131.5 kg
[~2016-09-30] MED LIST: ACETYLCYSTEINE 20% 30 ML VIAL As Ordered ONE; AMOX875T2 PO; ASPI81TA85 PO; BUPR1TAB17 PO; CLAR10CA3 PO; FLOM5CAP PO; FLON1SPR; LISI-542 PO; MULTCAP12 PO; NS 1,000 ML IV ONE; PROPOFOL 200 MG/20 ML VIAL As Ordered ONE
--- NOTE | 2016-09-30 08:21 | ROOR ---
Patient Name: Jose Russell Procedure Date: 09/30/2016 7:58 AM Date of : 1960 Age: 56 Room: [facility] Gender: Male Note Status: Finalized Procedure: Colonoscopy to Cecum Indications: Colon cancer screening in patient at increased risk: Family history of 1st-degree relative with colon polyps Providers: Sadiq Cho MD Referring MD: TOSHA ESPINO MD Requesting Provider: Medicines: Monitored Anesthesia Care Complications: No immediate complications. Procedure: Pre-Anesthesia Assessment: - The heart rate, respiratory rate, oxygen saturations, blood pressure, adequacy of pulmonary ventilation, and response to care were monitored throughout the procedure. The Colonoscope was introduced through the anus and advanced to the cecum, identified by appendiceal orifice and ileocecal valve. The colonoscopy was performed without difficulty. The patient tolerated the procedure well. The quality of the bowel preparation was excellent. Findings: The perianal and digital rectal examinations were normal. Non-bleeding internal hemorrhoids were found during retroflexion. The hemorrhoids were small and Grade I (internal hemorrhoids that do not prolapse). Scattered small-mouthed diverticula were found in the recto-sigmoid colon, sigmoid colon and descending colon. The exam was otherwise without abnormality on direct and retroflexion views. Impression: - Non-bleeding internal hemorrhoids. - Diverticulosis in the recto-sigmoid colon, in the sigmoid colon and in the descending colon. - The examination was otherwise normal on direct and retroflexion views. - No specimens collected. - The exam was otherwise normal to the cecum. Recommendation: - Patient has a contact number available for emergencies. The signs and symptoms of potential delayed complications were discussed with the patient. Return to normal activities tomorrow. Written discharge instructions were provided to the patient. - High fiber diet. - Discharge patient to home. - Continue present medications. - Repeat colonoscopy in 5 years for screening purposes. - Return to referring physician. - The findings and recommendations were discussed with the patient's family. Sadiq Cho MD Sadiq Cho MD 09/30/2016 8:21:34 AM This report has been signed electronically. Number of Addenda: 0 Note Initiated On: 09/30/2016 7:58 AM Estimated Blood Loss: Estimated blood loss: none.
[2016-09-30 08:44] VITALS: BP 123/74
== END | disposition home or self-care (01) ==
LOC: M OPP 07:32
PROVIDERS: ATTEND Internal Medicine Gastroenterology
DX: Z12.11 Encounter for screening for malignant neoplasm of colon (principal); Z83.71 Family history of colonic polyps; K64.0 First degree hemorrhoids; K57.30 Diverticulosis of large intestine without perforation or abscess without bleeding; I10 Essential (primary) hypertension; E78.00 Pure hypercholesterolemia, unspecified; G47.30 Sleep apnea, unspecified; R32 Unspecified urinary incontinence; Z79.51 Long term (current) use of inhaled steroids; Z79.899 Other long term (current) drug therapy; Z79.82 Long term (current) use of aspirin; Z87.891 Personal history of nicotine dependence

== ENCOUNTER 2019-03-04 01:36 | Emergency (ER) | payer MEDICARE, MEDICAID ==
[~2019-03-04] VITALS: Ht 185.4 cm; Wt 136.4 kg
[2019-03-04 01:36] VITALS: BP 169/83
[~2019-03-04 01:36] MED LIST changes: -ACETYLCYSTEINE 20% 30 ML VIAL As Ordered ONE; -BUPR1TAB17 PO; +BUPR1TAB53 PO; +FLOM0.4C39 PO; -FLOM5CAP PO; -NS 1,000 ML IV ONE; -PROPOFOL 200 MG/20 ML VIAL As Ordered ONE
[2019-03-04] MEDS ORDERED: OMEP-218 PO (01:43)
[2019-03-04] MEDS ORDERED: DOXYCYCLINE HYCLATE 100 MG TAB PO ONE (02:15)
== END 2019-03-04 02:28 | disposition home or self-care (01) ==
LOC: M ED 01:36
DX: S30.860A Insect bite (nonvenomous) of lower back and pelvis, initial encounter (principal); W57.XXXA Bitten or stung by nonvenomous insect and other nonvenomous arthropods, initial encounter; Y92.89 Other specified places as the place of occurrence of the external cause; I10 Essential (primary) hypertension; J45.909 Unspecified asthma, uncomplicated; K21.9 Gastro-esophageal reflux disease without esophagitis; Z79.899 Other long term (current) drug therapy

== ENCOUNTER 2022-09-14 11:45 | Day surgery (SDC) | payer MEDICARE, MEDICAID ==
[~2022-09-14] VITALS: Ht 188 cm; Wt 113.3 kg
[~2022-09-14 11:45] MED LIST changes: +ASPI81CH33 PO; -ASPI81TA85 PO; +ASPI81TA86 PO; +ATOR1TAB21 PO; +FINA5TAB2 PO; +FOLI1TAB11 PO; +JARD1TAB3 PO; +LEVO25TA5 PO; -LISI-542 PO; +LISI5TAB11 PO; +LORA-674 PO; +METF850T4 PO; +NEUR600T PO; +OMEP-173 PO; +PANT40TA29 PO; +RAMI1CAP22 PO; +ROSU10TA6 PO; +SERT50TA29 PO; +SYMB16INH INH; +TAMS1CAP17 PO
[2022-09-14] MEDS ORDERED: VIT D PO (12:41)
[2022-09-14] MEDS ORDERED: MAGN400C PO (12:41)
[2022-09-14] MEDS ORDERED: LORA-674 PO (12:41)
[2022-09-14] MEDS ORDERED: SERT-141 PO (12:41)
[2022-09-14] MEDS ORDERED: METF-1191 PO (12:41)
[2022-09-14] MEDS ORDERED: LISI5TAB11 PO (12:41)
[2022-09-14] MEDS ORDERED: FINA5TAB2 PO (12:41)
[2022-09-14] MEDS ORDERED: FLOM0.4C39 PO (12:41)
[2022-09-14] MEDS ORDERED: LIDOCAINE 2% 100MG/5ML SDV (FOR ANES.) As Ordered ONE (13:30)
[2022-09-14] MEDS ORDERED: fentaNYL 100 MCG/2 ML INJECTION As Ordered ONE (13:30)
[2022-09-14] MEDS ORDERED: propofoL 200 MG/20 ML VIAL As Ordered ONE ×2 (13:30→13:47)
[2022-09-14 14:18] VITALS: BP 139/62
== END 2022-09-14 14:20 | disposition home or self-care (01) ==
LOC: M OPP 11:45
PROVIDERS: ATTEND Internal Medicine Gastroenterology
DX: Z86.010 Personal history of colon polyps (principal); Z83.71 Family history of colonic polyps; K64.0 First degree hemorrhoids; K44.9 Diaphragmatic hernia without obstruction or gangrene; K29.70 Gastritis, unspecified, without bleeding; K31.A0 Gastric intestinal metaplasia, unspecified; G47.33 Obstructive sleep apnea (adult) (pediatric); Z87.891 Personal history of nicotine dependence; Z79.51 Long term (current) use of inhaled steroids; Z79.890 Hormone replacement therapy; Z79.899 Other long term (current) drug therapy
CPT/HCPCS: 43239; 88305; G0105; J3010